=== PATIENT | female | born 1930 | race Caucasian/White ===

== ENCOUNTER 2017-08-15 22:06 | Inpatient (IN) | payer OTHER ==
[~2017-08-15] VITALS: Ht 160 cm; Wt 56.7 kg
--- NOTE | ~2017-08-15 | HC ---
[facility] [place] [address] CONSULTATION Name: ADONIS JEROME Room #: 446-P [facility] IN M.R.#: [id number] Admission: 08/16/17 Attend Phys: Chris Tom MD Discharge: 08/22/17 Date of : 32 Report #: [id number] THIS REPORT FOR: //name// CC: Chris Inman DATE OF SERVICE: 08/20/2017 HISTORY OF PRESENT ILLNESS: The patient is an 86-year-old white female, admitted with difficulty with speaking, some slurred speech, word finding problems. MRI showed evidence of atrophy. She was seen by Neurology, underwent an EEG which did show evidence of a focal seizure disorder. This was noted to originate from the left side of the brain. MRI does show a left occipital cavernous angioma, but seizures are noted to originate further forward in the brain, so it may be an incidental finding. She has been started on Keppra, which she was receiving IV. Neurology indicates that her cognitive slowing may be from the multiple focal seizures or possibly from the levetiracetam. No plans on making any changes in medication are noted at this point. We are seeing her in rehabilitation medicine consultation. PAST MEDICAL HISTORY: Includes hypertension, high cholesterol. PAST SURGICAL HISTORY: D and C; breast biopsy, benign. MEDICATIONS: Please see the full medication listing. ALLERGIES: LISINOPRIL HABITS: No history of tobacco or alcohol abuse. Second hand smoke is noted. Spouse was noted to be a heavy smoker. SOCIAL HISTORY: Lives alone, house, one step, was driving. Also, was mowing her own 1awn. Son and daughter are involved and could stay with her if warranted. REVIEW OF SYSTEMS: This was difficult with her speech. PHYSICAL EXAMINATION: GENERAL: Pleasant 86-year-old white female in no obvious distress. NEUROLOGIC: She kept saying the word "warm." I removed one of the blankets from her. She was cooperative. Facies appeared to be symmetric. When I asked her if she was right handed or left handed, she said "warm" and then she was frustrated as she knows she was not saying the right word. Functional range of motion of the upper extremities, strength is grade 4-/5. Lower extremities functional range of motion with strength grade 4-/5. DTRs are trace to 1. She was up earlier today with contact guard sit to stand and did ambulate 120 feet [facility] [address] [place] [address] CONSULTATION Name: ADONIS JEROME Room #: 446-P [facility] IN .R.#: [id number] Admission: 08/16/17 Attend Phys: Chris Tom MD Discharge: 08/22/17 Date of : 32 Report #: [id number] min assist without a device. In occupational therapy, lower extremity dressing has been min assist. ASSESSMENT: An 86-year-old white female with the following problem list: 1. Encephalopathy with cognitive slowing. 2. Focal seizure disorder, left brain. 3. Left occipital cavernous angioma, which maybe an incidental finding. 4. Functional mobility, ADLs and cognitive communication deficits. 5. Hypertension. PLAN: Therapy evaluations are continuing. Her mental status is currently being monitored. She certainly may warrant and benefit from an acute in-hospital inpatient rehabilitation stay. We will be glad to follow along with you as she further medically stabilizes. She is continuing on the IV Keppra with Neurology involved. She is being switched over to oral Keppra as noted. <ELECTRONICALLY SIGNED> By: Aly Garay MD 08/27/17 1116 [id number] 2300 Aly Garay MD /[facility]
--- NOTE | ~2017-08-15 | EKG ---
[address] [place] [address] ELECTROCARDIOGRAM REPORT Name: ADONIS JEROME [id number] Admission: 08/15/17 Attend Phys: Discharge: Date of : 32 Report #: [id number] THIS REPORT FOR: //name// [facility] ED Test Date: 2017-08-15 Test Time: 22:32:18 Pat Name: ADONIS JEROME Department: Room: Gender: F Records Manager: JOSE : 1930 Requested By: Rudy Baca Order Number: [id number] MD: Álvaro Hood Measurements Intervals [place] Rate: 92 P: 30 GA: 163 QRS: 33 QRSD: 84 T: 33 QT: 362 QTc: 448 Interpretive Statements Sinus rhythm Probable left atrial enlargement Consider right ventricular hypertrophy No previous ECG available for comparison Electronically Signed On 08-15-2017 22:44:09 CDT by Álvaro Hood [email or web address] <ELECTRONICALLY SIGNED> By: Álvaro Hood MD 08/15/17 2244 31 2232 MD ELIZABETH Hairston
--- NOTE | ~2017-08-15 | EKG ---
[address] [address] ELECTROCARDIOGRAM REPORT Name: ADONIS JEROME BIRDIE Room #: 240-P ADM IN M.R.#: [id number] Admission: 08/16/17 Attend Phys: Chris Tom MD Discharge: Date of : 31 Report #: [id number] THIS REPORT FOR: //name// [facility] Test Date: 2017-08-16 Test Time: 21:15:32 Pat Name: ADONIS JEROME Department: Room: 240 Gender: F Associate Director Qa: Shon WILLIAM : 1930 Requested By: May Alcantara Order Number: [id number] MD: Keyshawn Sampson Measurements Intervals Harper Rate: 93 P: 36 AL: 192 QRS: 40 QRSD: 95 T: 21 QT: 370 QTc: 461 Interpretive Statements Sinus rhythm Probable left atrial enlargement Early R to S with transition Compared to ECG 08/15/2017 22:32:18 No significant changes Electronically Signed On 08-17-2017 11:10:05 CDT by Keyshawn Sampson [email or web address] <ELECTRONICALLY SIGNED> By: Keyshawn Sampson MD 08/17/17 1110 14 14 Keyshawn Sampson MD /[facility]
--- NOTE | ~2017-08-15 | 2DMMODE ---
[facility] [address] [place] [address] 2 D/M-MODE ECHOCARDIOGRAM Name: JUSTUSADONISRc PACKER Room #: 364-P [facility] IN M.R.#: [id number] Admission: 08/16/17 Attend Phys: Chris Tom, Discharge: Date of : 32 Date of Service: 08/16/17 1208 Report #: [id number] THIS REPORT FOR: //name// APPROVED REPORT Study performed: 08/16/2017 10:33:47 EXAM: Comprehensive 2D, Doppler, and color-flow Echocardiogram Patient Location: Echo lab Room #: 364 Status: routine BSA: 1.60 HR: 91 bpm BP: 155/86 mmHg Other Information Study Quality: Adequate Indications CVA/TIA Echo Enhancing Agent Indication: Rule out Shunt Agent(s) / Amount(s) Used: Agitated Saline 7 cc 2D Dimensions RVDd: 26.15 mm LVEF(%): 59.52 (>50%) IVSd: 8.33 (7-11mm) LVOT Diam: 21.43 (18-24mm) LVDd: 40.03 mm PWd: 7.71 (7-11mm) Ascending Ao: 28.67 (22-36mm) LVDs: 27.54 (25-40mm) Aortic Root: 31.13 mm IVC: 21.00 mm Weir's LVEF: 59.52 % Volumes Left Atrial Volume (Systole) Single Plane 4CH: 30.97 mL Single Plane 2CH: 30.21 mL LA ESV Index: 22.00 mL/m2 Aortic Valve AoV Peak Henok.: 1.43 m/s AO Peak Gr.: 8.23 mmHg LVOT Max P.83 mmHg LVOT Max V: 1.10 m/s ANDRE Vmax: 2.76 cm2 [facility] [place] [address] 2 D/M-MODE ECHOCARDIOGRAM Name: ADONIS JEROME Room #: 364-P [facility] IN M.R.#: [id number] Admission: 08/16/17 Attend Phys: Chris Tom, Discharge: Date of : 32 Date of Service: 08/16/17 1208 Report #: [id number] Mitral Valve E/A Ratio: 0.7 MV Decel. Time: 281.87 ms MV E Max Henok.: 0.91 m/s MV A Henok.: 1.37 m/s MV PHT: 81.74 ms IVRT: 110.73 ms Pulmonary Valve PV Peak Henok.: 0.96 m/s PV Peak Gr.: 3.70 mmHg Pulmonary Vein P Vein S: 0.61 m/s P Vein A: 0.36 m/s P Vein D: 0.44 m/s P Vein A Dur.: 124.6 msec P Vein S/D Ratio: 1.39 Tricuspid Valve TR Peak Henok.: 2.53 m/s TR Peak Gr.: 25.58 mmHg PA Pressure: 36.00 mmHg Left Ventricle The left ventricle is normal size. There is normal left ventricular wall thickness. The left ventricular systolic function is normal. The left ventricular ejection fraction is within the normal range. LVEF is 55-60%. Grade I - abnormal relaxation pattern. Right Ventricle The right ventricle is normal size. The right ventricular systolic function is normal. Atria The left atrium size is normal. Interatrial septum is intact without evidence of ASD or PFO. The right atrium size is normal. Aortic Valve The aortic valve is normal in structure. Trace to mild aortic regurgitation. There is no aortic valvular stenosis. Mitral Valve The mitral valve is normal in structure. Trace mitral regurgitation. No evidence of mitral valve stenosis. Tricuspid Valve The tricuspid valve is normal in structure. There is trace tricuspid regurgitation. There is mild pulmonary hypertension. Estimated PAP [facility] [address] [place] [address] 2 D/M-MODE ECHOCARDIOGRAM Name: JUSTUSADONISGOPAL PACKER Room #: 364-P [facility] IN M.R.#: [id number] Admission: 08/16/17 Attend Phys: Chris Tom, Discharge: Date of : 32 Date of Service: 08/16/17 1208 Report #: [id number] 36mmHg. Pulmonic Valve The pulmonary valve is normal in structure. There is no pulmonic valvular regurgitation. Great Vessels The aortic root is normal in size. IVC is normal in size and collapses >50% with inspiration. <Conclusion> The left ventricle is normal size. The left ventricular systolic function is normal. Grade I - abnormal relaxation pattern. The right ventricle is normal size. The left atrium size is normal. Trace to mild aortic regurgitation. Trace mitral regurgitation. There is trace tricuspid regurgitation. There is mild pulmonary hypertension. Estimated PAP 36mmHg. Interatrial septum is intact without evidence of ASD or PFO. <ELECTRONICALLY SIGNED> By: Keyshawn Sampson MD 08/16/178 07 07 Keyshawn Sampson MD /INF
[2017-08-15 22:12] VITALS: BP 204/91
[2017-08-15 22:25] LABS: HEMATOCRIT 37.6 % (37.0-47.0); HEMOGLOBIN 12.8 gm/dL (12.0-15.0); MCH 32.4 pg (26.0-34.0); MCHC 34.1 g/dL (28.0-37.0); MCV 94.8 fL (80.0-100.0); RBC 3.96 mil/uL (4.20-5.00); RDW 12.4 % (10.5-14.5); WBC 9.3 thou/uL (4.0-11.0)
[2017-08-15 22:35] LABS: ANION GAP 8 mmol/L (7-16); BUN 24 mg/dL (7-18); CALCIUM 9.7 mg/dL (8.5-10.1); CHLORIDE 95 mmol/L (98-107); CO2 29 mmol/L (21-32); CREATININE 0.8 mg/dL (0.6-1.0); GLUCOSE 114 mg/dL (74-106); POTASSIUM 3.6 mmol/L (3.5-5.1); SODIUM 132 mmol/L (136-145)
[2017-08-15 22:41] LABS: PROTIME 9.8 Seconds (9.3-11.4)
[2017-08-15 22:44] LABS: TROPONIN-I < 0.04 ng/mL (<0.04-0.07)
[2017-08-16] VITALS (9 sets, daily range): BP systolic 136–185; BP diastolic 72–100
[2017-08-16 00:06] LABS: URINE BILIRUBIN NEGATIVE (Negative); URINE BLOOD NEGATIVE (Negative); URINE COLOR YELLOW; URINE GLUCOSE-RANDOM* NEGATIVE (Negative); URINE KETONES NEGATIVE (Negative); URINE LEUKOCYTES-REFLEX NEGATIVE (Negative); URINE PROTEIN (DIPSTICK) NEGATIVE (Negative); URINE SPECIFIC GRAVITY 1.015 (1.003-1.035); URINE UROBILINOGEN 0.2 E.U./dl (0.2-1.0)
[2017-08-16 06:57] LABS: ALBUMIN 3.7 g/dL (3.4-5.0); CALCIUM 9.2 mg/dL (8.5-10.1); CREATININE 0.6 mg/dL (0.6-1.0); POTASSIUM 3.4 mmol/L (3.5-5.1); TOTAL BILIRUBIN 0.8 mg/dL (<0.1-1.0); TOTAL PROTEIN 7.1 g/dL (6.4-8.2)
[2017-08-16] MEDS ORDERED: TUMS PO (09:21)
[2017-08-16] MEDS ORDERED: UNICOMPLEX M TA1 TA1 PO (09:22)
[2017-08-16] MEDS ORDERED: WELCHOL 625 MG625 MG PO (09:25)
[2017-08-16] MEDS ORDERED: LOSARTAN-HCTZ1 EAC3 PO (09:25)
[2017-08-16 13:31] LABS: TSH 4.996 uIU/mL (0.358-3.740)
[2017-08-16 14:08] LABS: FOLIC ACID 35.8 ng/mL (8.6-58.9)
[2017-08-16 21:46] LABS: ABG SAMPLE TYPE ARTERIAL; BE(vivo) -1.9 mmol/L (-2 to +3); HCO3 21.9 mmol/L (22.0-26.0); O2(CT) 18.1 mL/dL (15.0-23.0); O2Hb 95.2 % (92.0-98.0); PCO2 34.4 mmHg (35.0-45.0); PO2 82.8 mmHg (80.0-100.0); pH 7.421 (7.360-7.450); sO2 96.4 % (92.0-98.0); tCO2 22.9 mmol/L (24.0-30.0)
[2017-08-16 21:47] LABS: LACTATE 4.51 mmol/L (0.5-2.0); STICK SITE R.RADIAL
[2017-08-17] VITALS (26 sets, daily range): BP systolic 92–166; BP diastolic 48–125
[2017-08-17 03:21] LABS: CHOLESTEROL 227 mg/dL (<200); HDL CHOLESTEROL 75 mg/dL (>40); LDL CHOLESTEROL 142 mg/dL (<100); TRIGLYCERIDE 54 mg/dL (<150); VLDL 11 mg/dL (<40)
[2017-08-17 03:28] LABS: SERUM ASSESSMENT Clear
[2017-08-17 04:06] LABS: GLYCOHEMOGLOBIN (HGB A1C) 5.3 % (4.8-5.6)
[2017-08-18] VITALS (18 sets, daily range): BP systolic 136–176; BP diastolic 71–105
[2017-08-18 05:27] LABS: HEMATOCRIT 37.5 % (37.0-47.0); HEMOGLOBIN 12.7 gm/dL (12.0-15.0); MCH 31.6 pg (26.0-34.0); MCHC 33.9 g/dL (28.0-37.0); MCV 93.4 fL (80.0-100.0); RBC 4.01 mil/uL (4.20-5.00); RDW 12.3 % (10.5-14.5); WBC 11.9 thou/uL (4.0-11.0)
[2017-08-18 05:35] LABS: CALCIUM 7.9 mg/dL (8.5-10.1); CREATININE 0.5 mg/dL (0.6-1.0)
[2017-08-18 05:39] LABS: POTASSIUM 2.9 mmol/L (3.5-5.1)
[2017-08-18 09:01] LABS: MAGNESIUM 1.8 mg/dL (1.8-2.4)
[2017-08-19 00:11] VITALS: BP 171/82
[2017-08-19 04:00] VITALS: BP 164/98
[2017-08-19 08:00] VITALS: BP 173/90
[2017-08-19 08:17] LABS: HEMATOCRIT 37.8 % (37.0-47.0); HEMOGLOBIN 13.1 gm/dL (12.0-15.0); MCH 32.2 pg (26.0-34.0); MCHC 34.7 g/dL (28.0-37.0); MCV 92.8 fL (80.0-100.0); RBC 4.08 mil/uL (4.20-5.00); RDW 12.1 % (10.5-14.5); WBC 10.5 thou/uL (4.0-11.0)
[2017-08-19 09:04] LABS: CREATININE 0.4 mg/dL (0.6-1.0); MAGNESIUM 1.8 mg/dL (1.8-2.4); PHOSPHORUS 1.6 mg/dL (2.5-4.9); POTASSIUM 3.1 mmol/L (3.5-5.1)
[2017-08-19 16:20] VITALS: BP 143/67
[2017-08-19 19:30] VITALS: BP 147/78
[2017-08-19 20:07] LABS: DIL. RUSSELL VIPER VENOM 35.4 sec (0.0-47.0)
[2017-08-20 04:05] VITALS: BP 195/98
[2017-08-20 07:32] VITALS: BP 195/96
[2017-08-20 16:06] VITALS: BP 147/76
[2017-08-20 19:37] VITALS: BP 152/76
[2017-08-21 03:32] VITALS: BP 143/72
[2017-08-21 08:41] VITALS: BP 171/83
[2017-08-21 16:43] VITALS: BP 142/66
[2017-08-21 20:41] VITALS: BP 171/46
[2017-08-22 05:25] VITALS: BP 148/75
[2017-08-22 07:53] VITALS: BP 149/80
[2017-08-22] MEDS ORDERED: CYCLOBENZAPRINE5 MG PO (08:42)
[2017-08-22] MEDS ORDERED: COZAAR 50 MG TA50 M1 PO (08:43)
[2017-08-22] MEDS ORDERED: ASPIRIN EC325 M1 PO (08:43)
[2017-08-22] MEDS ORDERED: ACETAMINOPHEN325 M1 PO (08:43)
[2017-08-22] MEDS ORDERED: KEPPRA 500 MG500 M1 PO (08:43)
[2017-08-22 20:07] LABS: PROTHROMBIN GENE MUTATION Negative (())
== END 2017-08-22 11:33 | DRG 100 ==
LOC: ER 22:06 → 3W 08-16 00:44 → 4S 08-16 00:44 → EROBS 08-16 00:44 → 3W 08-16 01:36 → ICU 08-16 21:24 → 4S 08-18 13:23
PROVIDERS: Emergency Medicine; Internal Medicine; Nurse Practitioner Acute Care; Nurse Practitioner Family
DX: G40.109 Localization-related (focal) (partial) symptomatic epilepsy and epileptic syndromes with simple partial seizures, not intractable, without status epilepticus (principal); G93.40 Encephalopathy, unspecified; E78.00 Pure hypercholesterolemia, unspecified; R41.0 Disorientation, unspecified; I10 Essential (primary) hypertension; E78.5 Hyperlipidemia, unspecified; I16.0 Hypertensive urgency; Z77.22 Contact with and (suspected) exposure to environmental tobacco smoke (acute) (chronic); Z88.8 Allergy status to other drugs, medicaments and biological substances; D18.09 Hemangioma of other sites; Z80.1 Family history of malignant neoplasm of trachea, bronchus and lung; Z82.3 Family history of stroke; Z79.899 Other long term (current) drug therapy
CPT/HCPCS: 10100; 10203